=== PATIENT | female | born 1950 | race Caucasian/White ===

== ENCOUNTER 2018-11-02 16:25 | Emergency (ER) | payer MEDICARE, OTHER, SELFPAY ==
[2018-11-02 16:25] VITALS: BP 124/91; PULSE 140; RESP 22; TEMP 36.7; O2SAT 98
--- NOTE | 2018-11-02 16:40 | DI.RAD.S_ITS ---
PROCEDURE: XR FOOT RT MIN 3V INDICATIONS: dropped heavy item on right foot. TECHNIQUE: 3 views of the foot were acquired. COMPARISON: None. FINDINGS: Bones: No fractures or dislocations. No suspicious bony lesions. Mild osteoarthritic changes throughout focal joints are seen. Soft tissues: No tibiotalar joint effusion. Achilles tendon appears normal. IMPRESSION: No gross acute right foot fracture or dislocation. Dictated by: Demetrius Bell M.D. on 11/02/2018 at 17:03 Approved by: Demetrius Bell M.D. on 11/02/2018 at 17:05
[2018-11-02 17:00] VITALS: PULSE 130
[2018-11-02 17:10] LABS: Add Manual Diff / Slide Review NO; Basophils Absolute Auto 100 /uL (0-100); Eosinophils Absolute Auto 200 /uL (0-450); Hematocrit 36.8 % (36-46); Hemoglobin 12.5 g/dL (12.0-16.0); Lymphocytes Absolute Auto 2200 /uL (1100-4500); Lymphocytes Percent Auto 25.1 % (25-40); Mean Corpuscular Hemoglobin 29.4 PG (26-34); Mean Corpuscular Volume 86.4 fL (80-100); Monocytes Absolute Auto 500 /uL (0-900); Neutrophils Absolute Auto 5800 /uL (1500-7000); Neutrophils Percent Auto 65.9 % (50-75); Platelet Count 244 X10^3/uL (150-400); Red Blood Cell Count 4.26 X10^6/uL (4.0-5.2); Red Cell Distribution Width 13.5 % (11.6-14.8); White Blood Cell Count 8.8 X10^3/uL (4.5-11.0)
--- NOTE | 2018-11-02 17:10 | PC.NURSE ---
Attempted vagal manuver (blowing / leg lift) which lowered heart rate however HR returned to aflutter 130. Pt denies pain / discomfort. States she feels dehydrated. Would like to have IV fluid, then try vagal again. Dr. Cueto aware and agree w/ plan of care.
[2018-11-02] MEDS: SODIUM CHLORIDE 0.9% 1,000 ML 1000 ML IV (17:12)
[2018-11-02 17:19] LABS: INR 0.9 (0.9-1.3); Prothrombin Time 10.7 SECONDS (10.1-12.7)
--- NOTE | 2018-11-02 17:19 | ED.LOWEXIN ---
HPI - Extremity Injury (Lower) <Oksana Cueto DO - Last Filed: 11/04/18 07:33> General Chief Complaint: Extremity Injury, Lower Stated Complaint: RIGHT FOOT INJURY Time Seen by Provider: 11/02/18 16:40 Source: patient Mode of arrival: ambulatory Limitations: no limitations History of Present Illness HPI Narrative: This is a 68-year-old female comes to the emergency department complaining of right foot pain. Patient states that she dropped a frozen pork loin on her foot. She has pain as well as little bit of abrasion scant amount of blood and some bruising over her foot. She has pain with flexion of her big toe. Patient states that she is up-to-date with her tetanus. She denies any other injury. She denies any other symptoms. It was noted that her heart rate was in the 140s when she arrived, EKG shows atrial flutter with rapid ventricular response. Patient has a history of AFib/flutter. She states she has had an ablation in the past. She has had 1 cardioversion since then. She states that she is not on any anticoagulants, she is not on any medications for. Sometimes if she feels like her heart rate is fast she will taken metoprolol but she does not know the dose. This is only intermittently. She has not had any passing out, lightheadedness, no chest pain shortness of breath no nausea vomiting no other GI or urinary symptoms. No swelling in her lower extremities other than where she injured her foot and there is some bruising. Her household appliances salesperson is Dr. Darnell at [facility] in [place]. She unsure of the onset of her elevated heart rate. Related Data Home Medications Medication Instructions Recorded Confirmed ResMed Airsense 10 CPAP #1 ea 08/06/18 08/06/18 Allergies Allergy/AdvReac Type Severity Reaction Status Date / Time Iodinated Contrast- Oral and Allergy Unknown Verified 11/02/18 16:37 IV Dye [IODINATED CONTRAST MEDIA - IV DYE] [id number]-[id number]-Jfq Reductase Allergy Unknown Verified 11/02/18 16:37 Inhibitor [[id number]-[id number] REDUCTASE INHIBITOR] Review of Systems <DO Fide Bradley Last Filed: 11/04/18 07:33> Review of Systems ROS Unobtainable: All systems reviewed & are unremarkable except as noted in HPI and below Constitutional Denies chills, Denies fever(s), Denies lethargy and Denies weakness Cardiovascular Denies chest pain, Denies diaphoresis, Denies syncope, Denies rapid heart rate, Denies irregular heart rhythm, Denies lightheadedness, Denies palpitations, Denies dyspnea, Denies dyspnea on exertion and Denies orthopnea Respiratory Denies cough, Denies dyspnea, Denies dyspnea on exertion and Denies wheezing Gastrointestinal Gastrointestinal: Denies abdominal pain, Denies change in bowel habits, Denies diarrhea, Denies nausea and Denies vomiting Genitourinary Denies hematuria, Denies dysuria, Denies flank pain and Denies urinary urgency Musculoskeletal Denies muscle weakness, Denies numbness, Denies tingling and Reports other (Foot pain, swelling and bruising) Integumentary/Breasts Reports as per HPI, Reports unusual bruising and Reports wounds (Abrasion) Neurologic Denies syncope, Denies numbness, Denies tingling and Denies weakness Endocrine Denies palpitations Allergic/Immunologic Denies wheezing PFS <Oksana Cueto DO - Last Filed: 11/04/18 07:33> Medical History Excessive daytime sleepiness (Chronic) Obstructive sleep apnea of adult (Chronic) Primary insomnia (Inactive) Surgical History History of cardiac radiofrequency ablation (RFA) Status post tubal ligation Family History (Updated 10/24/15 @ 00:00 by Conversion Provider) Brother Cancer Obesity Diabetes mellitus Heart disease High cholesterol Brother Age: 73 High cholesterol Father Heart disease High cholesterol Sister Age: 93 Heart disease High cholesterol Sister Heart disease High cholesterol Grandmother Stroke Social History Smoking Status: Former smoker Family History Brother Cancer Obesity Diabetes mellitus Heart disease High cholesterol Brother Age: 73 High cholesterol Father Heart disease High cholesterol Sister Age: 93 Heart disease High cholesterol Sister Heart disease High cholesterol Grandmother Stroke Social History (Updated 11/02/18 @ 19:06 by Oksana Cueto DO) Smoking Status: Former smoker alcohol intake: current substance use type: does not use Exam <Oksana Cueto DO - Last Filed: 11/04/18 07:33> Narrative Exam Narrative: GENERAL: Alert and oriented x three, well-nourished, well-appearing female in no acute distress. HEENT: Head normocephalic, atraumatic, EOMI, pupils reactive, face symmetric, moist mucous membranes NECK: Supple, full range of motion CARDIOVASCULAR: Tachycardic and regular rate and rhythm without murmurs, rubs or gallops. No JVD. No swelling of lower extremities. RESPIRATORY: Breath sounds equal bilaterally, no wheezes rales or rhonchi. ABDOMEN: Soft, nontender. Normoactive bowel sounds all 4 quadrants. No guarding or rebound, rigidity, no mass : No CVA tenderness EXTREMITIES: Normal range of motion, no clubbing. Patient's right foot has some tenderness over the knees in the proximal DIP on the the inversion of the toe. The patient has a bruising she. She has full range of motion. She has some very mild swelling. She also has a small abrasion over the dorsum on the lateral side of the foot. Patient does not have any other bony tenderness. 2+ dorsalis pedis. Cap refill less than 2 seconds in all 5 toes. Normal sensation throughout. Neurovascularly intact NEUROLOGICAL: Cranial nerves II through XII grossly intact. Moving all extremities SKIN: Warm, dry, no petechiae, no rashes or lesions. Initial Vital Signs Initial Vital Signs: Vital Signs Temperature 98.1 F 11/02/18 16:25 Pulse Rate 140 H 11/02/18 16:25 Respiratory Rate 22 11/02/18 16:25 Blood Pressure 124/91 H 11/02/18 16:25 Pulse Oximetry 98 11/02/18 16:25 <Gil Chand, DO - Last Filed: 11/02/18 22:56> Initial Vital Signs Initial Vital Signs: Vital Signs Temperature 98.1 F 11/02/18 16:25 Pulse Rate 140 H 11/02/18 16:25 Respiratory Rate 22 11/02/18 16:25 Blood Pressure 124/91 H 11/02/18 16:25 Pulse Oximetry 98 11/02/18 16:25 Course <Oksana Cueto DO - Last Filed: 11/04/18 07:33> Orders Ordered: Discontinued Medications Sodium Chloride (Normal Saline 0.9%) 1,000 mls @ 1,000 mls/hr IV BOLUS ONE Stop: 11/02/18 18:05 Last Infusion: 11/02/18 17:51 Dose: 0 mls/hr Admin: 11/02/18 17:12 Dose: 1,000 mls/hr Metoprolol Tartrate (Lopressor) 25 mg PO NOW ONE Stop: 11/02/18 17:53 Last Admin: 11/02/18 18:01 Dose: 25 mg Vital Signs - 8 hr 11/02/18 16:25 11/02/18 17:00 11/02/18 18:03 Temperature 98.1 F Pulse Rate 140 H Pulse Rate [Right Dorsalis Pedis] 130 H Respiratory Rate 22 15 Blood Pressure 124/91 H Blood Pressure [Right Arm] 143/88 H Pulse Oximetry 98 11/02/18 18:30 11/02/18 19:00 11/02/18 19:38 Temperature Pulse Rate 99 H 88 94 H Pulse Rate [Right Dorsalis Pedis] Respiratory Rate 11 L 16 18 Blood Pressure Blood Pressure [Right Arm] 136/86 144/96 H 134/83 Pulse Oximetry 98 <Gil Chand DO - Last Filed: 11/02/18 22:56> Orders Ordered: Discontinued Medications Sodium Chloride (Normal Saline 0.9%) 1,000 mls @ 1,000 mls/hr IV BOLUS ONE Stop: 11/02/18 18:05 Last Infusion: 11/02/18 17:51 Dose: 0 mls/hr Admin: 11/02/18 17:12 Dose: 1,000 mls/hr Metoprolol Tartrate (Lopressor) 25 mg PO NOW ONE Stop: 11/02/18 17:53 Last Admin: 11/02/18 18:01 Dose: 25 mg Vital Signs - 8 hr 11/02/18 16:25 11/02/18 17:00 11/02/18 18:03 Temperature 98.1 F Pulse Rate 140 H Pulse Rate [Right Dorsalis Pedis] 130 H Respiratory Rate 22 15 Blood Pressure 124/91 H Blood Pressure [Right Arm] 143/88 H Pulse Oximetry 98 11/02/18 18:30 11/02/18 19:00 11/02/18 19:38 Temperature Pulse Rate 99 H 88 94 H Pulse Rate [Right Dorsalis Pedis] Respiratory Rate 11 L 16 18 Blood Pressure Blood Pressure [Right Arm] 136/86 144/96 H 134/83 Pulse Oximetry 98 MDM - Extremity Injury (Lower) <Oksana Cueto DO - Last Filed: 11/04/18 07:33> Lab Data Attestation: I reviewed the patient's lab results. Result diagrams: 11/02/18 16:55 11/02/18 16:55 Lab Results 11/02/18 11/02/18 11/02/18 Range/Units 16:55 16:55 16:55 WBC 8.8 (4.5-11.0) X10^3/uL RBC 4.26 (4.0-5.2) X10^6/uL Hgb 12.5 (12.0-16.0) g/dL Hct 36.8 (36-46) % MCV 86.4 (80-100) fL MCH 29.4 (26-34) PG MCHC 34.0 (30-36) % RDW 13.5 (11.6-14.8) % Plt Count 244 (150-400) X10^3/uL Neut % (Auto) 65.9 (50-75) % Lymph % (Auto) 25.1 (25-40) % [place] % (Auto) 6.0 (3-14) % Eos % (Auto) 2.0 (2-4) % Baso % (Auto) 1.0 (0-2) % Neut # (Auto) 5800 (6896-5818) /uL Lymph # (Auto) 2200 (5325-1728) /uL [place] # (Auto) 500 (0-900) /uL Eos # (Auto) 200 (0-450) /uL Baso # (Auto) 100 (0-100) /uL PT 10.7 (10.1-12.7) SECONDS INR 0.9 (0.9-1.3) APTT 31 (26.4-36.2) SECONDS Sodium 136 L (137-145) mmol/L Potassium 3.7 (3.4-5.1) mmol/L Chloride 101 (98-107) mmol/L Carbon Dioxide 25 (22-32) mmol/L BUN 16 (7-17) mg/dL Creatinine 0.70 (0.52-1.04) mg/dL Estimated GFR > 60.0 (>60) mL/min BUN/Creatinine Ratio 22.9 H (6-22) Glucose 97 (80-110) mg/dL Calcium 9.4 (8.4-10.2) mg/dL Magnesium (1.6-2.3) mg/dL Total Bilirubin 0.5 (0.2-1.3) mg/dL AST 24 (14-36) IU/L ALT 18 (9-52) IU/L Alkaline Phosphatase 125 (38-126) U/L Total Creatine Kinase 84 (30-135) U/L CK-MB (CK-2) TNP CK-MB (CK-2) Rel Index TNP Troponin I < 0.012 (0.01-0.034) ng/mL Total Protein 7.8 (6.3-8.2) g/dL Albumin 4.5 (3.5-5.0) g/dL Globulin 3.3 (1.7-4.1) g/dL Albumin/Globulin Ratio 1.4 (1.0-2.8) Lipase 74 (23-300) U/L /12/14 Range/Units 16:55 WBC (4.5-11.0) X10^3/uL RBC (4.0-5.2) X10^6/uL Hgb (12.0-16.0) g/dL Hct (36-46) % MCV (80-100) fL MCH (26-34) PG MCHC (30-36) % RDW (11.6-14.8) % Plt Count (150-400) X10^3/uL Neut % (Auto) (50-75) % Lymph % (Auto) (25-40) % [place] % (Auto) (3-14) % Eos % (Auto) (2-4) % Baso % (Auto) (0-2) % Neut # (Auto) (0560-4050) /uL Lymph # (Auto) (7760-2541) /uL [place] # (Auto) (0-900) /uL Eos # (Auto) (0-450) /uL Baso # (Auto) (0-100) /uL PT (10.1-12.7) SECONDS INR (0.9-1.3) APTT (26.4-36.2) SECONDS Sodium (137-145) mmol/L Potassium (3.4-5.1) mmol/L Chloride (98-107) mmol/L Carbon Dioxide (22-32) mmol/L BUN (7-17) mg/dL Creatinine (0.52-1.04) mg/dL Estimated GFR (>60) mL/min BUN/Creatinine Ratio (6-22) Glucose (80-110) mg/dL Calcium (8.4-10.2) mg/dL Magnesium 1.9 (1.6-2.3) mg/dL Total Bilirubin (0.2-1.3) mg/dL AST (14-36) IU/L ALT (9-52) IU/L Alkaline Phosphatase (38-126) U/L Total Creatine Kinase (30-135) U/L CK-MB (CK-2) CK-MB (CK-2) Rel Index Troponin I (0.01-0.034) ng/mL Total Protein (6.3-8.2) g/dL Albumin (3.5-5.0) g/dL Globulin (1.7-4.1) g/dL Albumin/Globulin Ratio (1.0-2.8) Lipase (23-300) U/L Imaging Data Right foot xray: Radiologist's impression: [place] [address] XRay Report Signed Patient: Kinjal Ortega#: [id number] : 1950Acct:[id number] Age/Sex: 68 / FDate of Service: 11/02/18 Loc: ED Accession Number: [id number] Procedure: XR foot RT min 3V Ordering Provider: Mahi Mace PROCEDURE: XR FOOT RT MIN 3V INDICATIONS: dropped heavy item on right foot. TECHNIQUE: 3 views of the foot were acquired. COMPARISON: None. FINDINGS: Bones: No fractures or dislocations. No suspicious bony lesions. Mild osteoarthritic changes throughout focal joints are seen. Soft tissues: No tibiotalar joint effusion. Achilles tendon appears normal. IMPRESSION: No gross acute right foot fracture or dislocation. Dictated by: Demetrius Bell M.D. on 11/02/2018 at 17:03 Approved by: Demetrius Bell M.D. on 11/02/2018 at 17:05 ECG Data Attestation: I personally reviewed and interpreted this ECG as follows: Prior ECG tracings: not available for review Interpretation: Atrial flutter with a rate of 138, QRS of 105 QTC of 381. Nonspecific ST change. MDM Narrative Medical decision making narrative: Patient's foot x-ray is negative for fracture, she is up-to-date with her tetanus. Plan for weight-bearing as tolerated and recheck with imaging in 7-10 days if she continues to have symptoms. Patient's heart rate has improved to the 120 sometimes 130 range with a L of fluids. She states she did sometimes take a low dose short-acting metoprolol so was given 25 mg p.o. which did not improve her heart rate significantly. She does not know when her symptoms started so she does not seem to be appropriate candidate for cardioversion without MIHAELA which we do not have available. Dr. Darnell her household appliances salesperson was contacted at [facility]. Signed out to Dr. Chand while awaiting callback from cardiology. <Gil Chand, - Last Filed: 11/02/18 22:56> Lab Data Lab Results 11/02/18 11/02/18 11/02/18 Range/Units 16:55 16:55 16:55 WBC 8.8 (4.5-11.0) X10^3/uL RBC 4.26 (4.0-5.2) X10^6/uL Hgb 12.5 (12.0-16.0) g/dL Hct 36.8 (36-46) % MCV 86.4 (80-100) fL MCH 29.4 (26-34) PG MCHC 34.0 (30-36) % RDW 13.5 (11.6-14.8) % Plt Count 244 (150-400) X10^3/uL Neut % (Auto) 65.9 (50-75) % Lymph % (Auto) 25.1 (25-40) % [place] % (Auto) 6.0 (3-14) % Eos % (Auto) 2.0 (2-4) % Baso % (Auto) 1.0 (0-2) % Neut # (Auto) 5800 (3378-0921) /uL Lymph # (Auto) 2200 (7285-2370) /uL [place] # (Auto) 500 (0-900) /uL Eos # (Auto) 200 (0-450) /uL Baso # (Auto) 100 (0-100) /uL PT 10.7 (10.1-12.7) SECONDS INR 0.9 (0.9-1.3) APTT 31 (26.4-36.2) SECONDS Sodium 136 L (137-145) mmol/L Potassium 3.7 (3.4-5.1) mmol/L Chloride 101 (98-107) mmol/L Carbon Dioxide 25 (22-32) mmol/L BUN 16 (7-17) mg/dL Creatinine 0.70 (0.52-1.04) mg/dL Estimated GFR > 60.0 (>60) mL/min BUN/Creatinine Ratio 22.9 H (6-22) Glucose 97 (80-110) mg/dL Calcium 9.4 (8.4-10.2) mg/dL Magnesium (1.6-2.3) mg/dL Total Bilirubin 0.5 (0.2-1.3) mg/dL AST 24 (14-36) IU/L ALT 18 (9-52) IU/L Alkaline Phosphatase 125 (38-126) U/L Total Creatine Kinase 84 (30-135) U/L CK-MB (CK-2) TNP CK-MB (CK-2) Rel Index TNP Troponin I < 0.012 (0.01-0.034) ng/mL Total Protein 7.8 (6.3-8.2) g/dL Albumin 4.5 (3.5-5.0) g/dL Globulin 3.3 (1.7-4.1) g/dL Albumin/Globulin Ratio 1.4 (1.0-2.8) Lipase 74 (23-300) U/L 11/02/18 Range/Units 16:55 WBC (4.5-11.0) X10^3/uL RBC (4.0-5.2) X10^6/uL Hgb (12.0-16.0) g/dL Hct (36-46) % MCV (80-100) fL MCH (26-34) PG MCHC (30-36) % RDW (11.6-14.8) % Plt Count (150-400) X10^3/uL Neut % (Auto) (50-75) % Lymph % (Auto) (25-40) % [place] % (Auto) (3-14) % Eos % (Auto) (2-4) % Baso % (Auto) (0-2) % Neut # (Auto) (6687-7198) /uL Lymph # (Auto) (6005-6210) /uL [place] # (Auto) (0-900) /uL Eos # (Auto) (0-450) /uL Baso # (Auto) (0-100) /uL PT (10.1-12.7) SECONDS INR (0.9-1.3) APTT (26.4-36.2) SECONDS Sodium (137-145) mmol/L Potassium (3.4-5.1) mmol/L Chloride (98-107) mmol/L Carbon Dioxide (22-32) mmol/L BUN (7-17) mg/dL Creatinine (0.52-1.04) mg/dL Estimated GFR (>60) mL/min BUN/Creatinine Ratio (6-22) Glucose (80-110) mg/dL Calcium (8.4-10.2) mg/dL Magnesium 1.9 (1.6-2.3) mg/dL Total Bilirubin (0.2-1.3) mg/dL AST (14-36) IU/L ALT (9-52) IU/L Alkaline Phosphatase (38-126) U/L Total Creatine Kinase (30-135) U/L CK-MB (CK-2) CK-MB (CK-2) Rel Index Troponin I (0.01-0.034) ng/mL Total Protein (6.3-8.2) g/dL Albumin (3.5-5.0) g/dL Globulin (1.7-4.1) g/dL Albumin/Globulin Ratio (1.0-2.8) Lipase (23-300) U/L MDM Narrative Medical decision making narrative: Received turned over from day provider. Reviewed patient's note. Perform my own examination. Waiting for Cardiology to return our call. Just prior to cardiology: Back nursing went into the room and found the patient with a heart rate in the 80s. Repeat EKG shows a sinus rhythm ventricular rate 82. Patient states she feels like she is no longer in atrial fibrillation. I did receive a call back from the household appliances salesperson he stated that since she is back in atrial fibrillation no medication is recommended. I did recommend she contact her primary household appliances salesperson tomorrow for follow-up and to discuss Holter monitor. I did discuss this with the patient. We did discuss follow-up return precautions with regard to her foot injury. She expressed understanding and agreement with plan. Discharge Plan Departure Patient Disposition: Home Clinical Impression: Atrial flutter with rapid ventricular response Contusion of right foot Qualifiers: Encounter type: initial encounter Qualified Code(s): S90.31XA - Contusion of right foot, initial encounter Discharge Date/Time: 11/02/18 20:06 Interventions: ED Discharge Assessment Last Done: 11/02/18 20:06 Instructions: DI for Atrial Flutter, How To Perform RICE (Rest, Ice, Compress, Elevate) Activity Restrictions/Additional Instructions: Keep your foot elevated and iced. You can walk on it as needed. Recommend you contact your household appliances salesperson tomorrow to discuss a follow-up. Return to the emergency department for any new or worsening symptoms Prescriptions: No Action ResMed Airsense 10 CPAP Qty: 1 RF: 0
[2018-11-02 17:22] LABS: PTT Partial Thromboplastin Tim 31 SECONDS (26.4-36.2)
[2018-11-02 17:28] LABS: Alanine Aminotransferase 18 IU/L (9-52); Albumin 4.5 g/dL (3.5-5.0); Albumin Globulin Ratio 1.4 (1.0-2.8); Alkaline Phosphatase 125 U/L (38-126); Aspartate Aminotransferase 24 IU/L (14-36); BUN Creatinine Ratio 22.9 (6-22); Bilirubin Total 0.5 mg/dL (0.2-1.3); Blood Urea Nitrogen 16 mg/dL (7-17); Calcium 9.4 mg/dL (8.4-10.2); Carbon Dioxide 25 mmol/L (22-32); Chloride 101 mmol/L (98-107); Creatine Kinase 84 U/L (30-135); Estimated Glomerular Filt Rate > 60.0 mL/min (>60); Globulin 3.3 g/dL (1.7-4.1); Glucose 97 mg/dL (80-110); HEMOLYSIS < 15 (0-50); Lipase 74 U/L (23-300); Potassium 3.7 mmol/L (3.4-5.1); Sodium 136 mmol/L (137-145); Total Protein 7.8 g/dL (6.3-8.2)
--- NOTE | 2018-11-02 17:28 | PC.NURSE ---
Pt was unaware of aflutter / rapid heart rate. Unsure of when she went into it. Not on anticoagulation.
[2018-11-02 17:29] LABS: Magnesium 1.9 mg/dL (1.6-2.3)
[2018-11-02 17:39] LABS: Troponin I < 0.012 ng/mL (0.01-0.034)
[2018-11-02] MEDS: METOPROLOL IR 25 MG TABLET PO (18:01)
[2018-11-02 18:03] VITALS: BP 143/88; RESP 15
--- NOTE | 2018-11-02 18:29 | ED_ITS ---
HPI - Extremity Injury (Lower) <Oksana Cueto DO - Last Filed: 11/04/18 07:33> General Chief Complaint: Extremity Injury, Lower Stated Complaint: RIGHT FOOT INJURY Time Seen by Provider: 11/02/18 16:40 Source: patient Mode of arrival: ambulatory Limitations: no limitations History of Present Illness HPI Narrative: This is a 68-year-old female comes to the emergency department complaining of right foot pain. Patient states that she dropped a frozen pork loin on her foot. She has pain as well as little bit of abrasion scant amount of blood and some bruising over her foot. She has pain with flexion of her big toe. Patient states that she is up-to-date with her tetanus. She denies any other injury. She denies any other symptoms. It was noted that her heart rate was in the 140s when she arrived, EKG shows atrial flutter with rapid ventricular response. Patient has a history of AFib/flutter. She states she has had an ablation in the past. She has had 1 cardioversion since then. She states that she is not on any anticoagulants, she is not on any medications for. Sometimes if she feels like her heart rate is fast she will taken metoprolol but she does not know the dose. This is only intermittently. She has not had any passing out, lightheadedness, no chest pain shortness of breath no nausea vomiting no other GI or urinary symptoms. No swelling in her lower extremities other than where she injured her foot and there is some bruising. Her cellophane bath mixer is Dr. Darnell at [facility] in [place]. She unsure of the onset of her elevated heart rate. Related Data Home Medications Medication Instructions Recorded Confirmed ResMed Airsense 10 CPAP #1 [id number] 08/06/18 08/06/18 Allergies Allergy/AdvReac Type Severity Reaction Status Date / Time Iodinated Contrast- Oral and Allergy Unknown Verified 11/02/18 16:37 IV Dye [IODINATED CONTRAST MEDIA - IV DYE] [id number]-Mwp Reductase Allergy Unknown Verified 11/02/18 16:37 Inhibitor [HAAWBRM-CLE-RDB REDUCTASE INHIBITOR] Review of Systems <DO Fide Bradley Last Filed: 11/04/18 07:33> Review of Systems ROS Unobtainable: All systems reviewed & are unremarkable except as noted in HPI and below Constitutional Denies chills, Denies fever(s), Denies lethargy and Denies weakness Cardiovascular Denies chest pain, Denies diaphoresis, Denies syncope, Denies rapid heart rate, Denies irregular heart rhythm, Denies lightheadedness, Denies palpitations, Denies dyspnea, Denies dyspnea on exertion and Denies orthopnea Respiratory Denies cough, Denies dyspnea, Denies dyspnea on exertion and Denies wheezing Gastrointestinal Gastrointestinal: Denies abdominal pain, Denies change in bowel habits, Denies diarrhea, Denies nausea and Denies vomiting Genitourinary Denies hematuria, Denies dysuria, Denies flank pain and Denies urinary urgency Musculoskeletal Denies muscle weakness, Denies numbness, Denies tingling and Reports other (Foot pain, swelling and bruising) Integumentary/Breasts Reports as per HPI, Reports unusual bruising and Reports wounds (Abrasion) Neurologic Denies syncope, Denies numbness, Denies tingling and Denies weakness Endocrine Denies palpitations Allergic/Immunologic Denies wheezing PFS <Oksana Cueto DO - Last Filed: 11/04/18 07:33> Medical History Excessive daytime sleepiness (Chronic) Obstructive sleep apnea of adult (Chronic) Primary insomnia (Inactive) Surgical History History of cardiac radiofrequency ablation (RFA) Status post tubal ligation Family History (Updated 10/24/15 @ 00:00 by Conversion Provider) Brother Cancer Obesity Diabetes mellitus Heart disease High cholesterol Brother Age: 73 High cholesterol Father Heart disease High cholesterol Sister Age: 93 Heart disease High cholesterol Sister Heart disease High cholesterol Grandmother Stroke Social History Smoking Status: Former smoker Family History Brother Cancer Obesity Diabetes mellitus Heart disease High cholesterol Brother Age: 73 High cholesterol Father Heart disease High cholesterol Sister Age: 93 Heart disease High cholesterol Sister Heart disease High cholesterol Grandmother Stroke Social History (Updated 11/02/18 @ 19:06 by Oksana Cueto DO) Smoking Status: Former smoker alcohol intake: current substance use type: does not use Exam <Oksana Cueto DO - Last Filed: 11/04/18 07:33> Narrative Exam Narrative: GENERAL: Alert and oriented x three, well-nourished, well- appearing female in no acute distress. HEENT: Head normocephalic, atraumatic, EOMI, pupils reactive, face symmetric, moist mucous membranes NECK: Supple, full range of motion CARDIOVASCULAR: Tachycardic and regular rate and rhythm without murmurs, rubs or gallops. No JVD. No swelling of lower extremities. RESPIRATORY: Breath sounds equal bilaterally, no wheezes rales or rhonchi. ABDOMEN: Soft, nontender. Normoactive bowel sounds all 4 quadrants. No guarding or rebound, rigidity, no mass : No CVA tenderness EXTREMITIES: Normal range of motion, no clubbing. Patient's right foot has some tenderness over the knees in the proximal DIP on the the inversion of the toe. The patient has a bruising she. She has full range of motion. She has some very mild swelling. She also has a small abrasion over the dorsum on the lateral side of the foot. Patient does not have any other bony tenderness. 2+ dorsalis pedis. Cap refill less than 2 seconds in all 5 toes. Normal sensation throughout. Neurovascularly intact NEUROLOGICAL: Cranial nerves II through XII grossly intact. Moving all extremities SKIN: Warm, dry, no petechiae, no rashes or lesions. Initial Vital Signs Initial Vital Signs: Vital Signs Temperature 98.1 F 11/02/18 16:25 Pulse Rate 140 H 11/02/18 16:25 Respiratory Rate 22 11/02/18 16:25 Blood Pressure 124/91 H 11/02/18 16:25 Pulse Oximetry 98 11/02/18 16:25 <Gil Chand, DO - Last Filed: 11/02/18 22:56> Initial Vital Signs Initial Vital Signs: Vital Signs Temperature 98.1 F 11/02/18 16:25 Pulse Rate 140 H 11/02/18 16:25 Respiratory Rate 22 11/02/18 16:25 Blood Pressure 124/91 H 11/02/18 16:25 Pulse Oximetry 98 11/02/18 16:25 Course <Oksana Cueto DO - Last Filed: 11/04/18 07:33> Orders Ordered: Discontinued Medications Sodium Chloride (Normal Saline 0.9%) 1,000 mls @ 1,000 mls/hr IV BOLUS ONE Stop: 11/02/18 18:05 Last Infusion: 11/02/18 17:51 Dose: 0 mls/hr Admin: 11/02/18 17:12 Dose: 1,000 mls/hr Metoprolol Tartrate (Lopressor) 25 mg PO NOW ONE Stop: 11/02/18 17:53 Last Admin: 11/02/18 18:01 Dose: 25 mg Vital Signs - 8 hr 11/02/18 16:25 11/02/18 17:00 11/02/18 18:03 Temperature 98.1 F Pulse Rate 140 H Pulse Rate [Right Dorsalis Pedis] 130 H Respiratory Rate 22 15 Blood Pressure 124/91 H Blood Pressure [Right Arm] 143/88 H Pulse Oximetry 98 11/02/18 18:30 11/02/18 19:00 11/02/18 19:38 Temperature Pulse Rate 99 H 88 94 H Pulse Rate [Right Dorsalis Pedis] Respiratory Rate 11 L 16 18 Blood Pressure Blood Pressure [Right Arm] 136/86 144/96 H 134/83 Pulse Oximetry 98 <Gil Chand DO - Last Filed: 11/02/18 22:56> Orders Ordered: Discontinued Medications Sodium Chloride (Normal Saline 0.9%) 1,000 mls @ 1,000 mls/hr IV BOLUS ONE Stop: 11/02/18 18:05 Last Infusion: 11/02/18 17:51 Dose: 0 mls/hr Admin: 11/02/18 17:12 Dose: 1,000 mls/hr Metoprolol Tartrate (Lopressor) 25 mg PO NOW ONE Stop: 11/02/18 17:53 Last Admin: 11/02/18 18:01 Dose: 25 mg Vital Signs - 8 hr 11/02/18 16:25 11/02/18 17:00 11/02/18 18:03 Temperature 98.1 F Pulse Rate 140 H Pulse Rate [Right Dorsalis Pedis] 130 H Respiratory Rate 22 15 Blood Pressure 124/91 H Blood Pressure [Right Arm] 143/88 H Pulse Oximetry 98 11/02/18 18:30 11/02/18 19:00 11/02/18 19:38 Temperature Pulse Rate 99 H 88 94 H Pulse Rate [Right Dorsalis Pedis] Respiratory Rate 11 L 16 18 Blood Pressure Blood Pressure [Right Arm] 136/86 144/96 H 134/83 Pulse Oximetry 98 MDM - Extremity Injury (Lower) <Oksana Cueto DO - Last Filed: 11/04/18 07:33> Lab Data Attestation: I reviewed the patient's lab results. Result diagrams: 11/02/18 16:55 11/02/18 16:55 Lab Results 11/02/18 11/02/18 11/02/18 Range/Units 16:55 16:55 16:55 WBC 8.8 (4.5-11.0) X10^3/uL RBC 4.26 (4.0-5.2) X10^6/uL Hgb 12.5 (12.0-16.0) g/dL Hct 36.8 (36-46) % MCV 86.4 (80-100) fL MCH 29.4 (26-34) PG MCHC 34.0 (30-36) % RDW 13.5 (11.6-14.8) % Plt Count 244 (150-400) X10^3/uL Neut % (Auto) 65.9 (50-75) % Lymph % (Auto) 25.1 (25-40) % Mcduffie % (Auto) 6.0 (3-14) % Eos % (Auto) 2.0 (2-4) % Baso % (Auto) 1.0 (0-2) % Neut # (Auto) 5800 (8789-3194) /uL Lymph # (Auto) 2200 (7833-2313) /uL Mcduffie # (Auto) 500 (0-900) /uL Eos # (Auto) 200 (0-450) /uL Baso # (Auto) 100 (0-100) /uL PT 10.7 (10.1-12.7) SECONDS INR 0.9 (0.9-1.3) APTT 31 (26.4-36.2) SECONDS Sodium 136 L (137-145) mmol/L Potassium 3.7 (3.4-5.1) mmol/L Chloride 101 (98-107) mmol/L Carbon Dioxide 25 (22-32) mmol/L BUN 16 (7-17) mg/dL Creatinine 0.70 (0.52-1.04) mg/dL Estimated GFR > 60.0 (>60) mL/min BUN/Creatinine Ratio 22.9 H (6-22) Glucose 97 (80-110) mg/dL Calcium 9.4 (8.4-10.2) mg/dL Magnesium (1.6-2.3) mg/dL Total Bilirubin 0.5 (0.2-1.3) mg/dL AST 24 (14-36) IU/L ALT 18 (9-52) IU/L Alkaline Phosphatase 125 (38-126) U/L Total Creatine Kinase 84 (30-135) U/L CK-MB (CK-2) TNP CK-MB (CK-2) Rel Index TNP Troponin I < 0.012 (0.01-0.034) ng/mL Total Protein 7.8 (6.3-8.2) g/dL Albumin 4.5 (3.5-5.0) g/dL Globulin 3.3 (1.7-4.1) g/dL Albumin/Globulin Ratio 1.4 (1.0-2.8) Lipase 74 (23-300) U/L /12/14 Range/Units 16:55 WBC (4.5-11.0) X10^3/uL RBC (4.0-5.2) X10^6/uL Hgb (12.0-16.0) g/dL Hct (36-46) % MCV (80-100) fL MCH (26-34) PG MCHC (30-36) % RDW (11.6-14.8) % Plt Count (150-400) X10^3/uL Neut % (Auto) (50-75) % Lymph % (Auto) (25-40) % Mcduffie % (Auto) (3-14) % Eos % (Auto) (2-4) % Baso % (Auto) (0-2) % Neut # (Auto) (2936-9674) /uL Lymph # (Auto) (7850-0904) /uL Mcduffie # (Auto) (0-900) /uL Eos # (Auto) (0-450) /uL Baso # (Auto) (0-100) /uL PT (10.1-12.7) SECONDS INR (0.9-1.3) APTT (26.4-36.2) SECONDS Sodium (137-145) mmol/L Potassium (3.4-5.1) mmol/L Chloride (98-107) mmol/L Carbon Dioxide (22-32) mmol/L BUN (7-17) mg/dL Creatinine (0.52-1.04) mg/dL Estimated GFR (>60) mL/min BUN/Creatinine Ratio (6-22) Glucose (80-110) mg/dL Calcium (8.4-10.2) mg/dL Magnesium 1.9 (1.6-2.3) mg/dL Total Bilirubin (0.2-1.3) mg/dL AST (14-36) IU/L ALT (9-52) IU/L Alkaline Phosphatase (38-126) U/L Total Creatine Kinase (30-135) U/L CK-MB (CK-2) CK-MB (CK-2) Rel Index Troponin I (0.01-0.034) ng/mL Total Protein (6.3-8.2) g/dL Albumin (3.5-5.0) g/dL Globulin (1.7-4.1) g/dL Albumin/Globulin Ratio (1.0-2.8) Lipase (23-300) U/L Imaging Data Right foot xray: Radiologist's impression: [place] [id number] XRay Report Signed Patient: Kinjal Ortega#: [id number] : 1950Acct:[id number] Age/Sex: 68 / FDate of Service: 11/02/18 Loc: ED Accession Number: [id number] Procedure: XR foot RT min 3V Ordering Provider: Mahi Mace PROCEDURE: XR FOOT RT MIN 3V INDICATIONS: dropped heavy item on right foot. TECHNIQUE: 3 views of the foot were acquired. COMPARISON: None. FINDINGS: Bones: No fractures or dislocations. No suspicious bony lesions. Mild osteoarthritic changes throughout focal joints are seen. Soft tissues: No tibiotalar joint effusion. Achilles tendon appears normal. IMPRESSION: No gross acute right foot fracture or dislocation. Dictated by: Demetrius Bell M.D. on 11/02/2018 at 17:03 Approved by: Demetrius Bell M.D. on 11/02/2018 at 17:05 ECG Data Attestation: I personally reviewed and interpreted this ECG as follows: Prior ECG tracings: not available for review Interpretation: Atrial flutter with a rate of 138, QRS of 105 QTC of 381. Nonspecific ST change. MDM Narrative Medical decision making narrative: Patient's foot x-ray is negative for fracture, she is up-to-date with her tetanus. Plan for weight-bearing as tolerated and recheck with imaging in 7-10 days if she continues to have symptoms. Patient's heart rate has improved to the 120 sometimes 130 range with a L of fluids. She states she did sometimes take a low dose short-acting metoprolol so was given 25 mg p.o. which did not improve her heart rate significantly. She does not know when her symptoms started so she does not seem to be appropriate candidate for cardioversion without MIHAELA which we do not have available. Dr. Darnell her cellophane bath mixer was contacted at [facility]. Signed out to Dr. Chand while awaiting callback from cardiology. <Gil Chand, - Last Filed: 11/02/18 22:56> Lab Data Lab Results 11/02/18 11/02/18 11/02/18 Range/Units 16:55 16:55 16:55 WBC 8.8 (4.5-11.0) X10^3/uL RBC 4.26 (4.0-5.2) X10^6/uL Hgb 12.5 (12.0-16.0) g/dL Hct 36.8 (36-46) % MCV 86.4 (80-100) fL MCH 29.4 (26-34) PG MCHC 34.0 (30-36) % RDW 13.5 (11.6-14.8) % Plt Count 244 (150-400) X10^3/uL Neut % (Auto) 65.9 (50-75) % Lymph % (Auto) 25.1 (25-40) % Mcduffie % (Auto) 6.0 (3-14) % Eos % (Auto) 2.0 (2-4) % Baso % (Auto) 1.0 (0-2) % Neut # (Auto) 5800 (3826-4410) /uL Lymph # (Auto) 2200 (5470-5169) /uL Mcduffie # (Auto) 500 (0-900) /uL Eos # (Auto) 200 (0-450) /uL Baso # (Auto) 100 (0-100) /uL PT 10.7 (10.1-12.7) SECONDS INR 0.9 (0.9-1.3) APTT 31 (26.4-36.2) SECONDS Sodium 136 L (137-145) mmol/L Potassium 3.7 (3.4-5.1) mmol/L Chloride 101 (98-107) mmol/L Carbon Dioxide 25 (22-32) mmol/L BUN 16 (7-17) mg/dL Creatinine 0.70 (0.52-1.04) mg/dL Estimated GFR > 60.0 (>60) mL/min BUN/Creatinine Ratio 22.9 H (6-22) Glucose 97 (80-110) mg/dL Calcium 9.4 (8.4-10.2) mg/dL Magnesium (1.6-2.3) mg/dL Total Bilirubin 0.5 (0.2-1.3) mg/dL AST 24 (14-36) IU/L ALT 18 (9-52) IU/L Alkaline Phosphatase 125 (38-126) U/L Total Creatine Kinase 84 (30-135) U/L CK-MB (CK-2) TNP CK-MB (CK-2) Rel Index TNP Troponin I < 0.012 (0.01-0.034) ng/mL Total Protein 7.8 (6.3-8.2) g/dL Albumin 4.5 (3.5-5.0) g/dL Globulin 3.3 (1.7-4.1) g/dL Albumin/Globulin Ratio 1.4 (1.0-2.8) Lipase 74 (23-300) U/L 11/02/18 Range/Units 16:55 WBC (4.5-11.0) X10^3/uL RBC (4.0-5.2) X10^6/uL Hgb (12.0-16.0) g/dL Hct (36-46) % MCV (80-100) fL MCH (26-34) PG MCHC (30-36) % RDW (11.6-14.8) % Plt Count (150-400) X10^3/uL Neut % (Auto) (50-75) % Lymph % (Auto) (25-40) % Mcduffie % (Auto) (3-14) % Eos % (Auto) (2-4) % Baso % (Auto) (0-2) % Neut # (Auto) (8582-4213) /uL Lymph # (Auto) (6490-9868) /uL Mcduffie # (Auto) (0-900) /uL Eos # (Auto) (0-450) /uL Baso # (Auto) (0-100) /uL PT (10.1-12.7) SECONDS INR (0.9-1.3) APTT (26.4-36.2) SECONDS Sodium (137-145) mmol/L Potassium (3.4-5.1) mmol/L Chloride (98-107) mmol/L Carbon Dioxide (22-32) mmol/L BUN (7-17) mg/dL Creatinine (0.52-1.04) mg/dL Estimated GFR (>60) mL/min BUN/Creatinine Ratio (6-22) Glucose (80-110) mg/dL Calcium (8.4-10.2) mg/dL Magnesium 1.9 (1.6-2.3) mg/dL Total Bilirubin (0.2-1.3) mg/dL AST (14-36) IU/L ALT (9-52) IU/L Alkaline Phosphatase (38-126) U/L Total Creatine Kinase (30-135) U/L CK-MB (CK-2) CK-MB (CK-2) Rel Index Troponin I (0.01-0.034) ng/mL Total Protein (6.3-8.2) g/dL Albumin (3.5-5.0) g/dL Globulin (1.7-4.1) g/dL Albumin/Globulin Ratio (1.0-2.8) Lipase (23-300) U/L MDM Narrative Medical decision making narrative: Received turned over from day provider. Reviewed patient's note. Perform my own examination. Waiting for Cardiology to return our call. Just prior to cardiology: Back nursing went into the room and found the patient with a heart rate in the 80s. Repeat EKG shows a sinus rhythm ventricular rate 82. Patient states she feels like she is no longer in atrial fibrillation. I did receive a call back from the cellophane bath mixer he stated that since she is back in atrial fibrillation no medication is recommended. I did recommend she contact her primary cellophane bath mixer tomorrow for follow-up and to discuss Holter monitor. I did discuss this with the patient. We did discuss follow-up return precautions with regard to her foot injury. She expressed understanding and agreement with plan. Discharge Plan Departure Patient Disposition: Home Clinical Impression: Atrial flutter with rapid ventricular response Contusion of right foot Qualifiers: Encounter type: initial encounter Qualified Code(s): S90.31XA - Contusion of right foot, initial encounter Discharge Date/Time: 11/02/18 20:06 Interventions: ED Discharge Assessment Last Done: 11/02/18 20:06 Instructions: DI for Atrial Flutter, How To Perform RICE (Rest, Ice, Compress, Elevate) Activity Restrictions/Additional Instructions: Keep your foot elevated and iced. You can walk on it as needed. Recommend you contact your cellophane bath mixer tomorrow to discuss a follow-up. Return to the [facility] department for any new or worsening symptoms Prescriptions: No Action ResMed Airsense 10 CPAP Qty: 1 RF: 0
[2018-11-02 18:30] VITALS: BP 136/86; PULSE 99; RESP 11
--- NOTE | 2018-11-02 18:35 | DI.RAD.S_ITS ---
PROCEDURE: XR CHEST 1V INDICATIONS: atrial flutter TECHNIQUE: One view of the chest was acquired. COMPARISON: [facility], CR, XR CHEST 1 VIEW, 04/04/2017, 8:06. FINDINGS: Surgical changes and devices: None. Lungs and pleura: Increased pulmonary vascularity is present with trace blunting of the right costophrenic angle. Mediastinum: Mediastinal contours appear normal. Heart size is normal. Bones and chest wall: No suspicious bony lesions. Overlying soft tissues appear unremarkable. IMPRESSION: Increased vascularity with trace blunting of the right costophrenic angle suggestive of edema with trace effusion. Dictated by: Kimberlyn Ceballos M.D. on 11/02/2018 at 19:16 Approved by: Kimberlyn Ceballos M.D. on 11/02/2018 at 19:17
[2018-11-02 19:00] VITALS: BP 144/96; PULSE 88; RESP 16
[2018-11-02 19:38] VITALS: BP 134/83; PULSE 94; RESP 18; O2SAT 98
== END 2018-11-02 20:06 | disposition home or self-care (01) ==
PROVIDERS: Emergency Medicine; Emergency Provider Emergency Medicine
DX: I48.92 Unspecified atrial flutter (principal); S90.31XA Contusion of right foot, initial encounter; W20.8XXA Other cause of strike by thrown, projected or falling object, initial encounter
CPT/HCPCS: 36591; 71045; 73630; 80053; 82550; 83690; 83735; 84484; 85025; 85610; 85730; 93005; 96360; 99284; 99285